=== PATIENT | female | born 1985 | race Caucasian/White ===

== ENCOUNTER → 2016-09-20 | Outpatient (CLI) | payer OTHER ==
[2016-09-20 18:31] LABS: BILIRUBIN,DIRECT 0.1 MG/DL (0.0-0.2); BILIRUBIN,TOTAL 0.5 MG/DL (0.2-1.0); TOTAL PROTEIN 6.9 GM/DL (6.4-8.2)
[2016-09-20 18:32] LABS: ALBUMIN 3.4 GM/DL (3.2-5.2); ALBUMIN/GLOBULIN RATIO 0.97 (1.00-1.93)
[2016-09-20 18:52] LABS: BASO % 0.2 % (0.0-1.0); EOS % 0.8 % (0.0-3.0); LARGE UNSTAINED CELL # 0.1 K/mm3 (0.0-0.4); LARGE UNSTAINED CELL % 2.3 % (0.0-4.0); LYMPH # 2.2 K/mm3 (1.5-4.5); LYMPH % 33.6 % (24.0-44.0); MEAN CORPUSCULAR HEMOGLOBIN 28.2 pg (27.0-33.0); MEAN CORPUSCULAR VOLUME 88.2 fl (80.0-96.0); MONO # 0.3 K/mm3 (0.0-0.8); MONO % 4.7 % (0.0-5.0); NEUTROPHILS # 3.5 K/mm3 (1.8-7.7); NEUTROPHILS % 58.4 % (36.0-66.0); PLATELET COUNT, AUTOMATED 256 k/mm3 (150-450); RED CELL DISTRIBUTION WIDTH 13.9 % (11.5-14.5); WHITE BLOOD COUNT 6.1 K/mm3 (4.0-10.0)
== END ==
LOC: M WUC 11:58
PROVIDERS: ATTEND Nurse Practitioner Family
DX: L70.0 Acne vulgaris (principal); Z51.81 Encounter for therapeutic drug level monitoring; Z79.899 Other long term (current) drug therapy

== ENCOUNTER → 2016-10-03 | Outpatient (CLI) | payer OTHER ==
[2016-10-03 20:15] LABS: ALT/SGPT 21 U/L (12-78); AST/SGOT 17 U/L (15-37); CHOLESTEROL LEVEL 179 MG/DL (< 200); HCG, SERUM QUANTITATIVE < 1.0 MIU/ML; TRIGLYCERIDES LEVEL 88 MG/DL (<150)
== END ==
LOC: M WUC 11:52
PROVIDERS: ATTEND Nurse Practitioner Family
DX: Z79.899 Other long term (current) drug therapy (principal); L70.0 Acne vulgaris

== ENCOUNTER → 2016-11-01 | Outpatient (CLI) | payer OTHER ==
[2016-11-01 15:23] LABS: ALT/SGPT 20 U/L (12-78); AST/SGOT 18 U/L (15-37); CHOLESTEROL LEVEL 196 MG/DL (< 200); HCG, SERUM QUANTITATIVE < 1.0 MIU/ML; TRIGLYCERIDES LEVEL 113 MG/DL (<150)
== END ==
LOC: M WUC 11:18
PROVIDERS: ATTEND Nurse Practitioner Family
DX: Z79.899 Other long term (current) drug therapy (principal); L70.0 Acne vulgaris

== ENCOUNTER → 2016-12-01 | Outpatient (CLI) | payer OTHER ==
[2016-12-01 18:04] LABS: ALT/SGPT 25 U/L (12-78); AST/SGOT 19 U/L (15-37); CHOLESTEROL LEVEL 185 MG/DL (< 200); HCG, SERUM QUANTITATIVE < 1.0 MIU/ML; TRIGLYCERIDES LEVEL 156 MG/DL (<150)
== END ==
LOC: M WUC 11:38
PROVIDERS: ATTEND Nurse Practitioner Family
DX: Z79.899 Other long term (current) drug therapy (principal); L70.0 Acne vulgaris

== ENCOUNTER → 2016-12-13 | Outpatient (REF) | payer OTHER ==
[2016-12-13 11:03] LABS: ALT/SGPT 21 U/L (12-78); AST/SGOT 15 U/L (15-37); CHOLESTEROL LEVEL 203 MG/DL (< 200); HCG, SERUM QUANTITATIVE < 1.0 MIU/ML; TRIGLYCERIDES LEVEL 112 MG/DL (<150)
== END ==
LOC: M LABWUC 09:52
PROVIDERS: ATTEND Nurse Practitioner Family
DX: L70.0 Acne vulgaris (principal); Z51.81 Encounter for therapeutic drug level monitoring; Z79.899 Other long term (current) drug therapy

== ENCOUNTER → 2017-01-11 | Outpatient (CLI) | payer OTHER ==
[2017-01-11 12:30] LABS: ALT/SGPT 18 U/L (12-78); AST/SGOT 17 U/L (15-37); CHOLESTEROL LEVEL 202 MG/DL (< 200); HCG, SERUM QUANTITATIVE < 1.0 MIU/ML; TRIGLYCERIDES LEVEL 115 MG/DL (<150)
== END ==
LOC: M WUC 08:26
PROVIDERS: ATTEND Nurse Practitioner Family
DX: Z79.899 Other long term (current) drug therapy (principal); L70.0 Acne vulgaris

== ENCOUNTER → 2017-02-10 | Outpatient (CLI) | payer OTHER ==
[2017-02-10 14:01] LABS: ALT/SGPT 20 U/L (12-78); AST/SGOT 19 U/L (15-37); CHOLESTEROL LEVEL 204 MG/DL (< 200); HCG, SERUM QUANTITATIVE < 1.0 MIU/ML; TRIGLYCERIDES LEVEL 98 MG/DL (<150)
== END ==
LOC: M WUC 08:55
PROVIDERS: ATTEND Nurse Practitioner Family
DX: L70.0 Acne vulgaris (principal); Z51.81 Encounter for therapeutic drug level monitoring; Z79.899 Other long term (current) drug therapy

== ENCOUNTER → 2017-04-15 | Outpatient (CLI) | payer OTHER | LOC: M WUC 16:24 | PROVIDERS: ATTEND Nurse Practitioner Family | DX: L70.0 Acne vulgaris (principal) ==

== ENCOUNTER → 2017-09-10 | Outpatient (CLI) | payer OTHER ==
[2017-09-10 17:34] LABS: ANION GAP 7 MEQ/L (8-16); CARBON DIOXIDE LEVEL 28 MEQ/L (21-32); CHLORIDE LEVEL 106 MEQ/L (98-107); POTASSIUM SERUM 4.3 MEQ/L (3.5-5.1); SODIUM LEVEL 141 MEQ/L (136-145)
== END ==
LOC: M WUC 15:47
DX: Z51.81 Encounter for therapeutic drug level monitoring (principal); Z79.899 Other long term (current) drug therapy; L70.0 Acne vulgaris
CPT/HCPCS: 80051

== ENCOUNTER → 2018-02-10 | Outpatient (CLI) | payer OTHER ==
[2018-02-10 13:27] LABS: BASO % 0.3 % (0.0-1.0); EOS # 0.1 10^3/uL (0.0-0.50); EOS % 1.7 % (0.0-3.0); HEMATOCRIT 40.4 % (36.0-47.0); HEMOGLOBIN 13.5 g/dl (12.0-15.5); IMMATURE GRANULOCYTE % 0.3 % (0-3.0); LYMPH % 25.1 % (24.0-44.0); MEAN CORPUSCULAR HGB CONC 33.4 g/dl (32.0-36.5); MEAN CORPUSCULAR VOLUME 86.9 fl (80.0-96.0); MONO # 0.4 10^3/uL (0.0-0.8); MONO % 4.7 % (0.0-5.0); NEUTROPHILS # 5.3 10^3/uL (1.8-7.7); NEUTROPHILS % 67.9 % (36.0-66.0); PLATELET COUNT, AUTOMATED 327 10^3/uL (150-450); RED BLOOD COUNT 4.65 10^6/uL (4.00-5.40); RED CELL DISTRIBUTION WIDTH 12.2 % (11.5-14.5); WHITE BLOOD COUNT 7.8 10^3/uL (4.0-10.0)
[2018-02-10 13:36] LABS: INR 0.92; PROTHROMBIN TIME 12.5 SECONDS (12.1-14.4)
[2018-02-10 13:37] LABS: FIBRINOGEN 399 MG/DL (221-452); PARTIAL THROMBOPLASTIN TIME 29.4 SECONDS (25.4-37.6)
[2018-02-10 13:42] LABS: ESTIMATED AVERAGE GLUCOSE 105 MG/DL (60-110); HEMOGLOBIN A1c 5.3 %
[2018-02-10 13:58] LABS: ANION GAP 8 MEQ/L (8-16); BLOOD UREA NITROGEN 7 MG/DL (7-18); CARBON DIOXIDE LEVEL 24 MEQ/L (21-32); CHLORIDE LEVEL 108 MEQ/L (98-107); CHOLESTEROL LEVEL 212 MG/DL (<200); CHOLESTEROL RISK RATIO 2.789 (<5); CREATININE FOR GFR 0.68 MG/DL (0.55-1.30); GLOMERULAR FILTRATION RATE > 60.0 (>60); GLUCOSE, FASTING 76 MG/DL (70-100); HCG, SERUM QUANTITATIVE < 1.0 MIU/ML; HDL CHOLESTEROL 76 MG/DL (>40); NON-HDL-C 136 MG/DL; POTASSIUM SERUM 4.1 MEQ/L (3.5-5.1); SODIUM LEVEL 140 MEQ/L (136-145); TRIGLYCERIDES LEVEL 125 MG/DL (<150); URIC ACID 2.9 MG/DL (2.6-6.0)
[2018-02-12 11:03] LABS: TESTOSTERONE 21 NG/DL (14-76)
[2018-02-12 11:05] LABS: FOLLICLE STIMULATING HORMONE 3.5 mIU/mL; LUTEINIZING HORMONE 2.2 mIU/mL
[2018-02-15 10:13] LABS: 17 HYDROXY PROGESTERONE 12 ng/dL (.); DEHYDROEPIANDROSTERONE SULFATE 85.5 ug/dL (84.8-378.0); FACTOR VIII ACTIVITY 79 % (57-163); FACTOR VIII AG (VON WILLEBRAN) 94 % (50-200)
[2018-02-15 10:13] LABS: INSULIN LEVEL 10.2 uIU/mL (2.6-24.9)
== END ==
LOC: M WUC 12:35
DX: L29.2 Pruritus vulvae (principal); L70.9 Acne, unspecified
CPT/HCPCS: 83001

== ENCOUNTER → 2019-02-18 | Outpatient (REF) | payer OTHER ==
[2019-02-22 14:50] LABS: HPV HYBRID CAPTURE II Negative (Negative)
== END ==
LOC: M LAB LCGH 13:50
PROVIDERS: ATTEND Nurse Practitioner Adult Health
DX: Z12.4 Encounter for screening for malignant neoplasm of cervix (principal); R87.610 Atypical squamous cells of undetermined significance on cytologic smear of cervix (ASC-US)
CPT/HCPCS: 87624; G0123